=== PATIENT | male | born 1945 | race Caucasian/White ===

== ENCOUNTER → 2020-07-15 19:59 | Outpatient (REF) | payer OTHER, SELFPAY ==
[2020-07-15 19:25] LABS: HGB 14.5 g/dL (13.5-17.5); MCH 31.6 pg (27.0-33.0); MCHC 33.7 % (32.0-36.0); MCV 93.7 fL (80-95); MPV 10.4 fL (8.0-11.0); Platelet Count 182 10^3/uL (130-400); RBC 4.59 10^6/uL (4.36-5.78); RDW 12.4 % (11.8-14.1); RDW-SD 42.7 fL; WBC 8.07 10^3/uL (4.4-10.8)
[2020-07-15 19:50] LABS: ALT 20 U/L (16-63); AST 16 U/L (15-37); Alkaline Phosphatase 66 U/L (46-116); Anion Gap 8.3 mmol/L (3-11); BUN 12 mg/dL (7-18); Bilirubin, Total 1.3 mg/dL (0.2-1.0); CO2 28.7 mmol/L (21.0-32.0); CREATININE 1.04 mg/dL (0.70-1.30); Calcium 8.9 mg/dL (8.5-10.1); Chloride 104 mmol/L (98-107); Glucose 152 mg/dL (74-106); Potassium 4.1 mmol/L (3.5-5.1); Sodium 141 mmol/L (136-145); Total Protein 6.7 g/dL (6.4-8.2); Uric Acid 4.9 mg/dL (3.5-7.2)
[2020-07-15 19:54] LABS: COMMENT (LAB VIEW ONLY) 83.04 mg/dL; Microalb ug/mg Crea 5.3 ug/mg Cr
[2020-07-15 20:02] LABS: Calculated LDL 56 mg/dL (<100); Cholesterol 117 mg/dL (<200); HDL Cholesterol 47 mg/dL (40-60); Triglyceride 72 mg/dL (<150)
[2020-07-15 20:45] LABS: Hemoglobin A1C 6.3 % (<5.7)
[2020-07-17 08:52] LABS: PSA, Screening 1.9 ng/mL (0.0-6.5)
== END ==
LOC: NCHCN 19:59
PROVIDERS: PCP Physician Assistant; Visit Provider Physician Assistant
DX: Z00.00 Encounter for general adult medical examination without abnormal findings (principal); R78.5 Finding of other psychotropic drug in blood; I10 Essential (primary) hypertension; E11.9 Type 2 diabetes mellitus without complications; M25.50 Pain in unspecified joint
CPT/HCPCS: 80053; 80061; 84153; 85027; 82043; 82570; 83036; 84550

== ENCOUNTER 2020-12-18 16:59 | Outpatient (REF) | payer OTHER, SELFPAY ==
[2020-12-18 18:07] LABS: HCT 38.8 % (40.0-50.0); HGB 13.5 g/dL (13.5-17.5); MCH 31.1 pg (27.0-33.0); MCHC 34.8 % (32.0-36.0); MCV 89.4 fL (80-95); MPV 10.4 fL (8.0-11.0); Platelet Count 116 10^3/uL (130-400); RBC 4.34 10^6/uL (4.36-5.78); RDW 12.7 % (11.8-14.1); RDW-SD 41.8 fL; WBC 12.94 10^3/uL (4.4-10.8)
[2020-12-18 18:40] LABS: ALT 81 U/L (16-63); AST 43 U/L (15-37); Albumin 3.6 g/dL (3.4-5.0); Alkaline Phosphatase 83 U/L (46-116); Anion Gap 9.5 mmol/L (3-11); BUN 16 mg/dL (7-18); Bilirubin, Total 1.4 mg/dL (0.2-1.0); CO2 28.5 mmol/L (21.0-32.0); CREATININE 1.2 mg/dL (0.70-1.30); Calcium 8.5 mg/dL (8.5-10.1); Chloride 100 mmol/L (98-107); Estimated GFR 58.71 (mL/min/1.73m2); Glucose 126 mg/dL (74-106); Potassium 4.4 mmol/L (3.5-5.1); Sodium 138 mmol/L (136-145); Total Protein 6.4 g/dL (6.4-8.2)
== END 2020-12-18 17:00 | disposition home or self-care (01) ==
LOC: NCHCN 16:59
PROVIDERS: PCP Physician Assistant; Visit Provider Physician Assistant
DX: R50.9 Fever, unspecified (principal)
CPT/HCPCS: 80053; 85027

== ENCOUNTER 2020-12-21 11:45 | Outpatient (REF) | payer OTHER, SELFPAY ==
[2020-12-23 11:05] LABS: Hepatitis A Antibody IgM Negative (Negative); Hepatitis B Core Antibody Negative (Negative); Hepatitis B surface Ag Negative (Negative); Hepatitis C Ab w Rflx HCV PCR Negative (Negative)
== END 2020-12-21 11:46 | disposition home or self-care (01) ==
LOC: NCHCN 11:45
PROVIDERS: PCP Physician Assistant; Visit Provider Physician Assistant Medical
DX: R50.9 Fever, unspecified (principal); Z11.59 Encounter for screening for other viral diseases
CPT/HCPCS: 86704; 86709; 86803; 87340

== ENCOUNTER 2021-01-13 02:23 | Outpatient (CLI) | payer OTHER, SELFPAY ==
--- NOTE | 2021-01-13 07:30 | DI.US_ITS ---
APPROVED REPORT EXAM: Comprehensive 2D, Doppler, and color-flow Echocardiogram Patient Location: Out-Patient Indications: Heart murmur Other Information Study Quality: Adequate Conclusion Left Ventricle : The left ventricle is normal size. The left ventricular ejection fraction is within the normal range. There is normal left ventricular wall thickness. There is normal LV segmental wall motion. Diastolic function is indeterminate. LVEF is 64%. Right Ventricle : The right ventricle is normal size. The right ventricular systolic function is norm al. The RVSP is 26.0mmHg. Atria : Left atrium is borderline dilated. The right atrium size is normal. Aortic Valve : Aortic valve is calcified. Aortic valve is trileaflet. Severe aortic stenosis. Peak ao rtic valve gradient is 75.6mmHg. Highest mean aortic valve gradient is 45.4mmHg. Calculated EVA by th e continuity equation is 1.05cm2. Mild to moderate aortic regurgitation. Great Vessels : The aortic root is normal in size. The ascending aorta is moderately dilated. Aortic arch is normal in caliber. IVC is normal in size and collapses >50% with inspiration. There is no prior study available for comparison. Wall motion Left Ventricle The left ventricle is normal size. The left ventricular ejection fraction is within the normal range. There is normal left ventricular wall thickness. There is normal LV segmental wall motion. Diastolic function is indeterminate. There is no ventricular septal defect visualized. LVEF is 64%. Right Ventricle The right ventricle is normal size. The right ventricular systolic function is normal. The RVSP is 26 .0mmHg. Atria Left atrium is borderline dilated. The right atrium size is normal. The interatrial septum is intact with no evidence for an atrial septal defect. Aortic Valve Aortic valve is calcified. Aortic valve is trileaflet. Severe aortic stenosis. Peak aortic valve grad ient is 75.6mmHg. Highest mean aortic valve gradient is 45.4mmHg. Calculated EVA by the continuity eq uation is 1.05cm2. Mild to moderate aortic regurgitation. Mitral Valve Moderate mitral annular calcification. No evidence of mitral valve stenosis. Trace mitral regurgitati on. Tricuspid Valve The tricuspid valve is normal in structure. There is no tricuspid valve stenosis. Trace tricuspid reg urgitation. Pulmonic Valve The pulmonary valve is normal in structure. There is no pulmonic valvular stenosis. Trace pulmonic re gurgitation. Great Vessels The aortic root is normal in size. The ascending aorta is moderately dilated. Aortic arch is normal i n caliber. IVC is normal in size and collapses >50% with inspiration. Pericardium There is no pericardial effusion. 2D Dimensions IVSD d PLAX 1.13 cm M: 0.6-1.2 LV Vol A2C d MOD 108.5 mL LVPW d PLAX 1.11 cm M: 0.6 - 1.2 LV Vol A4C d MOD 111.0 mL LVID d PLAX 5.46 cm M: 4.2 - 5.8 LA vol/ BSA A2C s A-L 23.7 mL/m2 LVDs 3.80 cm M: 2.5 - 4.0 LA vol/ BSA A4C s A-L 42.5 mL/m2 Ao Root d 3.29 cm M: 3.1 - 3.7 LA Vol/ BSA Biplane s A-L 35.2 mL/m2 RA Area A4C 16.28 cm2 LA Area A4C s MOD 26.15 cm2 RA Vol/ BSA A4C s A-L 20.3 mL/m2 LA Area A2C s MOD 17.64 cm2 Ao Asc Diam d 3.98 cm M: 2.6 - 3.4 LV EF A4C MOD 66.2 % LV EF Teichholz 56.7 % LV EF A2C MOD 64.1 % LVEF (Driscoll's) 63.70 % M: 52 - 72 LV EF Biplane MOD 63.7 % LV Volume 83.04 mL M: 62 - 150 SV 70.23 mL LV Volume Index 42.15 mL/m2 M: 34 - 74 SV Index 35.56 mL/m2 LV Vol Biplane MOD 110.3 mL FS 30.00 % M-Mode TAPSE 2.13 cm (M/F) >1.7 LV Diastology MV E' medial 0.060 (>0.07 m/s) MV E' lateral 0.054 (>0.1 m/s) MV E/E' medial 17.43 MV E/E' lateral 19.41 E Peak Velocity 1.04 m/s A Peak Velocity 1.16 m/s Aortic Valve LVOT Area 3.20 cm2 AoV Area Vmax 1.05 cm2 LVOT Vmax 1.43 m/s AoV Area/ BSA (Vmax) 0.53 cm2/m2 LVOT Mean Ilya. 0.92 m/s EVA Mean Ilya. 0.91 cm2 LVOT Peak Grad 8.2 mmHg EVA Mean Ilya. Index 0.46 cm2/m2 LVOT Mean Grad 4.0 mmHg AR DT 1998 msec LVOT VTI 0.376 m AR PHT 579 msec LVOT Diam s 2.00 cm AoV Vmax 4.35 m/s Velocity Ratio 0.32 AoV Mean Ilya. 3.21 m/s AoV Peak Grad 75.6 mmHg LVOT SV 120.04 mL AoV Mean Grad 45.4 mmHg AoV VTI 1.103 m AoV Area VTI 1.09 cm2 AoV Area/ BSA (VTI) 0.55 cm/m2 Mitral Valve MV DT 298 (160-240 msec) MV PHT 87 msec MV Area PHT 2.54 cm2 MV VTI 0.486 m MV VTI Annulus 0.474 m Pulmonary Valve PV Vmax 1.34 (0.5-1.5 m/s) RVOT Peak Gr. 1.29 mmHg PV Peak Grad 7.1 mmHg RVOT Mean Gr. 0.70 mmHg PV Mean Grad 3.6 mmHg RVOT VTI 0.143 m PV VTI 0.281 m RVOT Vmax 0.57 m/s Tricuspid Valve TR Peak Grad 22.9 mmHg TR Vmax 2.40 m/s RA Pressure 3.00 mmHg RVSP (TR) 26.0 mmHg
== END 2021-01-13 02:43 ==
PROVIDERS: PCP Physician Assistant; Visit Provider Physician Assistant
DX: R01.1 Cardiac murmur, unspecified (principal); I35.8 Other nonrheumatic aortic valve disorders; I35.2 Nonrheumatic aortic (valve) stenosis with insufficiency; I77.810 Thoracic aortic ectasia
CPT/HCPCS: 93306

== ENCOUNTER → 2021-01-21 09:39 | Outpatient (BNVA) | payer OTHER, SELFPAY | PROVIDERS: PCP Physician Assistant; Referring Provider Physician Assistant; Visit Provider Physical Therapy Assistant | DX: K62.5 Hemorrhage of anus and rectum (principal); E11.9 Type 2 diabetes mellitus without complications; I10 Essential (primary) hypertension | CPT/HCPCS: 99203 ==

== ENCOUNTER → 2021-02-18 10:15 | Outpatient (BNVA) | payer OTHER, SELFPAY | PROVIDERS: PCP Physician Assistant; Referring Provider Physician Assistant; Visit Provider Internal Medicine Cardiovascular Disease | DX: I35.0 Nonrheumatic aortic (valve) stenosis (principal) | CPT/HCPCS: 99204; 99215 ==

== ENCOUNTER 2022-01-25 07:22 | Outpatient (REF) | payer OTHER, SELFPAY ==
[2022-01-25 14:39] LABS: HGB 15.2 g/dL (13.5-17.5); MCH 31.5 pg (27.0-33.0); MCHC 34.5 % (32.0-36.0); MCV 91 fL (80-95); Platelet Count 173 10^3/uL (130-400); RBC 4.82 10^6/uL (4.36-5.78); RDW 12.4 % (11.8-14.1); RDW-SD 41.3 fL; WBC 10.85 10^3/uL (4.4-10.8)
[2022-01-25 14:58] LABS: Hemoglobin A1C 7.1 % (<5.7)
[2022-01-25 15:45] LABS: ALT 27 U/L (16-63); AST 18 U/L (15-37); Albumin 4.4 g/dL (3.4-5.0); Alkaline Phosphatase 66 U/L (46-116); Anion Gap 12.3 mmol/L (3-11); BUN 16 mg/dL (7-18); Bilirubin, Total 2.1 mg/dL (0.2-1.0); CO2 26.7 mmol/L (21.0-32.0); CREATININE 1.1 mg/dL (0.70-1.30); Calcium 9.1 mg/dL (8.5-10.1); Calculated LDL 63 mg/dL (<100); Chloride 101 mmol/L (98-107); Cholesterol 126 mg/dL (<200); Glucose 186 mg/dL (74-106); HDL Cholesterol 46 mg/dL (40-60); Potassium 4.3 mmol/L (3.5-5.1); Sodium 140 mmol/L (136-145); Total Protein 7.2 g/dL (6.4-8.2); Triglyceride 89 mg/dL (<150)
[2022-01-25 15:54] LABS: COMMENT (LAB VIEW ONLY) 115.38 mg/dL; Microalb ug/mg Crea 6.2 ug/mg Cr
== END 2022-01-25 07:23 | disposition home or self-care (01) ==
LOC: NCHCN 07:22
PROVIDERS: PCP Physician Assistant; Visit Provider Physician Assistant
DX: E11.9 Type 2 diabetes mellitus without complications (principal); D69.6 Thrombocytopenia, unspecified
CPT/HCPCS: 80053; 80061; 85027; 82043; 82570; 83036

== ENCOUNTER 2022-11-16 08:24 | Outpatient (REF) | payer OTHER, SELFPAY ==
[2022-11-16 15:13] LABS: ALT 27 U/L (16-63); AST 16 U/L (15-37); Albumin 3.9 g/dL (3.4-5.0); Alkaline Phosphatase 70 U/L (46-116); Anion Gap 5.1 mmol/L (3-11); BUN 13 mg/dL (7-18); Bilirubin, Total 1.2 mg/dL (0.2-1.0); CO2 31.9 mmol/L (21.0-32.0); CREATININE 1.1 mg/dL (0.70-1.30); Calculated LDL 56 mg/dL (<100); Chloride 103 mmol/L (98-107); Cholesterol 123 mg/dL (<200); Estimated GFR 68.29 (mL/min/1.73m2); Glucose 206 mg/dL (74-106); HDL Cholesterol 53 mg/dL (40-60); Potassium 4.5 mmol/L (3.5-5.1); Sodium 140 mmol/L (136-145); Total Protein 6.8 g/dL (6.4-8.2); Triglyceride 70 mg/dL (<150)
[2022-11-16 15:56] LABS: COMMENT (LAB VIEW ONLY) 127.14 mg/dL; Microalb ug/mg Crea 5.8 ug/mg Cr
[2022-11-16 22:45] LABS: PSA, Screening 2.5 ng/mL (<=6.5)
== END 2022-11-16 08:25 | disposition home or self-care (01) ==
LOC: NCHCN 08:24
PROVIDERS: PCP Physician Assistant; Visit Provider Physician Assistant
DX: E11.9 Type 2 diabetes mellitus without complications (principal); Z12.5 Encounter for screening for malignant neoplasm of prostate
CPT/HCPCS: 80053; 80061; 84153; 82043; 82570; 83036

== ENCOUNTER 2022-12-19 03:06 | Outpatient (CLI) | payer OTHER, SELFPAY ==
--- NOTE | 2022-12-19 | DI.MRI_ITS ---
Exam(s) MR BRAIN WO EXAM: MR BRAIN WO CLINICAL HISTORY: VISUAL CHANGES, RECURRENT BLURRED VISION,H53.9 TECHNIQUE: Multiplanar multisequence MRI of the brain was performed. COMPARISON: No exams were available for comparison FINDINGS: The examination is limited due to patient motion artifact. VENTRICLES AND EXTRA AXIAL SPACES: Normal in size and morphology for the patient's age. MIDLINE SHIFT: None. CEREBRAL PARENCHYMA: No focus of restricted diffusion to suggest acute infarct. No space-occupying le tiffani identified. HEMORRHAGE: None. BRAINSTEM/CEREBELLUM: Normal. CALVARIUM: Normal. VISUALIZED PARANASAL SINUSES/MASTOIDS:Clear. LIME OF AWAN: Normal flow void. PITUITARY GLAND: Unremarkable. OTHER FINDINGS: None. IMPRESSION: Age-appropriate MRI of the brain. No acute abnormality. No evidence of an acute infarct. DATA REPOSITORY:
== END 2022-12-19 03:26 ==
LOC: DI 03:08
PROVIDERS: PCP Physician Assistant; Visit Provider Physician Assistant
DX: H53.69 Other night blindness (principal)
CPT/HCPCS: 70551

== ENCOUNTER 2023-12-18 11:49 | Outpatient (REF) | payer OTHER, SELFPAY ==
[2023-12-18 15:44] LABS: HCT 43.6 % (40.0-50.0); HGB 14.8 g/dL (13.5-17.5); MCH 31.1 pg (27.0-33.0); MCHC 33.9 % (32.0-36.0); MCV 92 fL (80-95); MPV 9.8 fL (8.0-11.0); Platelet Count 153 10^3/uL (130-400); RBC 4.76 10^6/uL (4.36-5.78); RDW 12.2 % (11.8-14.1); RDW-SD 41.1 fL; WBC 8.05 10^3/uL (4.4-10.8)
[2023-12-18 16:28] LABS: ALT 29 U/L (16-63); AST 17 U/L (15-37); Albumin 4.2 g/dL (3.4-5.0); Alkaline Phosphatase 64 U/L (46-116); Anion Gap 7.3 mmol/L (3-11); BUN 15 mg/dL (7-18); Bilirubin, Total 1.7 mg/dL (0.2-1.0); CO2 31.7 mmol/L (21.0-32.0); CREATININE 1.1 mg/dL (0.70-1.30); Calcium 9.2 mg/dL (8.5-10.1); Calculated LDL 60 mg/dL (<100); Chloride 104 mmol/L (98-107); Cholesterol 130 mg/dL (<200); Estimated GFR 67.86 (mL/min/1.73m2); Glucose 158 mg/dL (74-106); HDL Cholesterol 50 mg/dL (40-60); Potassium 4.3 mmol/L (3.5-5.1); Sodium 143 mmol/L (136-145); Total Protein 6.8 g/dL (6.4-8.2); Triglyceride 101 mg/dL (<150)
== END 2023-12-18 11:50 | disposition home or self-care (01) ==
LOC: NCHCN 11:49
PROVIDERS: PCP Physician Assistant; Visit Provider Physician Assistant
DX: E78.5 Hyperlipidemia, unspecified (principal); E11.9 Type 2 diabetes mellitus without complications; I10 Essential (primary) hypertension
CPT/HCPCS: 80053; 80061; 85027; 83036

== ENCOUNTER 2024-10-11 16:01 | Outpatient (REF) | payer OTHER, SELFPAY ==
[2024-10-11 21:14] LABS: Abs Immature Grans 0.04 10^3/uL (0.0-0.06); Absolute Basophil Count 0.04 10^3/uL (0.0-0.2); Absolute Eosinophil Count 0.17 10^3/uL (0.0-0.7); Absolute Lymphocyte Count 1.23 10^3/uL (1.2-3.4); Absolute Monocyte Count 0.58 10^3/uL (0.1-0.8); Absolute Neutrophil Count 5.84 10^3/uL (1.2-6.7); Basophils % 0.5 %; Eosinophils % 2.2 %; HCT 42.3 % (40.0-50.0); Immature Grans % 0.5 %; Lymphocytes % 15.6 %; MCH 31.2 pg (27.0-33.0); MCHC 33.1 % (32.0-36.0); MCV 94 fL (80-95); Monocytes % 7.3 %; Neutrophils % 73.9 %; Platelet Count 145 10^3/uL (130-400); RBC 4.49 10^6/uL (4.36-5.78); RDW 12.8 % (11.8-14.1)
[2024-10-11 21:34] LABS: Hemoglobin A1C 6.9 % (<5.7)
== END 2024-10-11 16:02 | disposition home or self-care (01) ==
LOC: NCHCN 16:01
PROVIDERS: PCP Physician Assistant; Visit Provider Nurse Practitioner Family
DX: R42 Dizziness and giddiness (principal)
CPT/HCPCS: 83036; 85025

== ENCOUNTER 2024-10-21 07:54 | Outpatient (CLI) | payer MEDICARE, SELFPAY | END 2024-10-21 07:55 | disposition home or self-care (01) | LOC: CARDOPNVT 07:54 | PROVIDERS: PCP Physician Assistant; Visit Provider Nurse Practitioner Family | DX: R42 Dizziness and giddiness (principal) | CPT/HCPCS: 93246 ==

== ENCOUNTER 2024-11-12 07:30 | Outpatient (CLI) | payer MEDICARE, SELFPAY ==
--- NOTE | 2024-11-12 09:11 | CER_ITS ---
Date of service: 11/12/24 Time of Service: 09:11 Cardiac Event Recorder Referring Provider:: Tatyana Ronquillo Indications:: Dizziness Cardiac Event Note: This is a cardiac event recorder. Patient was monitored for 11 days and 6 hours. Rhythm throughout was sinus with an average heart rate of 65. Minimum was 48, maximum 110. There were very rare isolated ventricular ectopic beats. There was 1 ventricular triplet. There were rare isolated atrial premature beats. There were several self- limited atrial runs. There was no atrial fibrillation, no high-grade AV block, no pauses greater than seconds. No symptoms were reported
== END 2024-11-12 07:31 | disposition home or self-care (01) ==
LOC: CARDOPNVT 07:30
PROVIDERS: PCP Physician Assistant; Visit Provider Internal Medicine Cardiovascular Disease
DX: R42 Dizziness and giddiness (principal)
CPT/HCPCS: 93248

== ENCOUNTER 2025-08-01 12:32 | Outpatient (REF) | payer MEDICARE, SELFPAY ==
[2025-08-01 15:51] LABS: Hemoglobin A1C 6.1 % (<5.7)
[2025-08-01 16:01] LABS: ALT 22 U/L (10-49); AST 25 U/L (<34); Albumin 4.4 g/dL (3.2-5.0); Alkaline Phosphatase 60 U/L (46-116); Anion Gap 10 mmol/L (3-11); BUN 33 mg/dL (9-23); Bilirubin, Total 0.9 mg/dL (0.2-1.2); CO2 27.0 mmol/L (20.0-31.0); Calcium 9.5 mg/dL (8.3-10.6); Chloride 104 mmol/L (98-107); Cholesterol 120 mg/dL (<200); Glucose 119 mg/dL (74-106); HDL Cholesterol 51 mg/dL (>40); Potassium 4.4 mmol/L (3.5-5.1); Sodium 141 mmol/L (136-145); Total Protein 6.9 g/dL (5.7-8.2)
== END 2025-08-01 12:33 | disposition home or self-care (01) ==
LOC: NCHCN 12:32
PROVIDERS: PCP Physician Assistant; Visit Provider Physician Assistant
DX: E11.9 Type 2 diabetes mellitus without complications (principal)
CPT/HCPCS: 80053; 80061; 83036